=== PATIENT | female | born 1985 | race Caucasian/White ===

== ENCOUNTER 2021-12-29 19:53 | Emergency (ER) | payer SELFPAY ==
[~2021-12-29] VITALS: Ht 180.3 cm; Wt 113.4 kg
[2021-12-29 20:13] VITALS: BP 144/78
--- NOTE | 2021-12-29 20:41 | NUR ---
PATIENT LEFT WITHOUT BEING SEEN AFTER TRIAGE. MADE AWARE.
== END 2021-12-29 21:17 | disposition left against medical advice (07) ==
LOC: ER 20:20
DX: Z53.21 Procedure and treatment not carried out due to patient leaving prior to being seen by health care provider (principal)